=== PATIENT | female | born 1950 | race Caucasian/White ===

== ENCOUNTER 2017-09-18 13:21 | Emergency (ER) | payer OTHER, BC ==
[2017-09-18] MEDS ORDERED: ONDANSETRON 4 MG/2 ML VIAL ONE (14:19)
[2017-09-18] MEDS ORDERED: NA CHLORIDE 0.9% 1,000 ML ONE (14:19)
[2017-09-18 14:40] LABS: Absolute Lymphocytes (CBC) 0.6 K/uL (0.7-4.9); Absolute Monocytes 0.6 K/uL (0.1-1.3); Absolute Neutrophil 6.6 K/uL (1.8-8.0); Basophils % 0.4 % (0-1.3); Eosinophils % 0.1 % (0-4.4); Hematocrit 45.3 % (36.0-45.0); Lymphocytes % 7.6 % (15.3-44.8); MCH 29.4 pg (27.0-35.0); MCV 91.1 fL (80-100); MPV 9.4 fL (7.6-11.3); Monocytes % 7.1 % (3.3-12.3); RBC Red Blood Cell Count 4.97 M/uL (3.86-4.86)
[2017-09-18 15:02] LABS: Albumin 3.9 g/dL (3.2-5.5); Bilirubin Direct 0.1 mg/dL (0-0.2); Bilirubin Total 0.5 mg/dL (0.3-1.2); Protein, Total 8.2 g/dL (6.0-8.3)
[2017-09-18 15:36] LABS: Urine Blood NEGATIVE (NEG); Urine Glucose NEGATIVE (NEG); Urine Protein 2+ (NEG)
--- NOTE | 2017-09-18 15:51 | RAD REPORT ---
EXAM DESCRIPTION: CT - Abdomen Pelvis W Contrast - 09/18/2017 3:35 pm CLINICAL HISTORY: Abdominal pain vomiting and diarrhea x2 days. COMPARISON: none. TECHNIQUE: Computed axial tomography of the abdomen pelvis was obtained. 100 cc Isovue-300 was admin istered intravenously. Oral contrast was not requested which limits evaluation of bowel. All CT scans are performed using dose optimization technique as appropriate and may include automated exposure control or mA/KV adjustment according to patient size. FINDINGS: The liver, spleen, pancreas, adrenal and kidneys appear unremarkable. A 4 centimeter diverticulum stems from the duodenum. The gallbladder has been removed. A small hiatal hernia is seen There is no evidence of diverticulitis. Fluid within nondilated bowel is seen IMPRESSION: Fluid within nondilated bowel may indicate an enteritis
[2017-09-18] MEDS ORDERED: POTASSIUM 25 MEQ EFFERV TAB ONE (16:21)
--- NOTE | 2017-09-18 16:27 | ER ---
Nurse's Notes [facility] Name: Jaycee Dang Age: 66 yrs Sex: Female : 1950 Arrival Date: 09/18/2017 Time: 13:24 Bed 27 Private MD: Diagnosis: Diarrhea, unspecified;Nausea and vomiting Presentation: 09/18 13:29 Presenting complaint: Patient states: N/V/D since . Pt states "I saw Dr. Pino aa5 and he gave me 2 pills but I can't keep it down". Transition of care: patient was not received from another setting of care. Onset of symptoms was September 2017. Care prior to arrival: None. 13:29 Method Of Arrival: Ambulatory aa5 13:29 Acuity: NICOL 3 aa5 16:41 Initial Sepsis Screen: Does the patient meet any 2 criteria? No. Patient's initial tl3 sepsis screen is negative. Does the patient have a suspected source of infection?. Triage Assessment: 16:41 GI: Reports diarrhea, vomiting. tl3 Historical: - Allergies: 13:30 No Known Allergies; aa5 - PMHx: 13:30 Hypertension; Mitral Valve Prolapse; aa5 - PSHx: 13:30 Hysterectomy; Cholecystectomy; aa5 - Immunization history:: Pneumococcal vaccine is up to date. - Social history:: Smoking status: Patient/guardian denies using tobacco. Screenin:37 Abuse screen: Denies threats or abuse. Nutritional screening: No deficits noted. tl3 Tuberculosis screening: No symptoms or risk factors identified. Fall Risk None identified. Assessment: 13:45 General: Appears uncomfortable, well groomed, well developed, well nourished, Behavior tl3 is calm, cooperative, appropriate for age. Pain: Complains of pain in abdomen Also complains of nausea, diarrhea. Neuro: Level of Consciousness is awake, alert, obeys commands, Oriented to person, place, time, situation, Appropriate for age. Cardiovascular: Heart tones S1 S2 present. Respiratory: Airway is patent Trachea midline Breath sounds are clear bilaterally. GI: Abdomen is round Bowel sounds present X 4 quads. hyperactive in right upper quadrant, left upper quadrant, right lower quadrant and left lower quadrant. : No signs and/or symptoms were reported regarding the genitourinary system. EENT: No signs and/or symptoms were reported regarding the EENT system. 15:43 Reassessment: Patient appears in no apparent distress at this time. No changes from tl3 previously documented assessment. Patient and/or family updated on plan of care and expected duration. Pain level reassessed. Patient is alert, oriented x 3, equal unlabored respirations, skin warm/dry/pink. pt states that she feels better. 16:33 Reassessment: Patient appears in no apparent distress at this time. Patient and/or tl3 family updated on plan of care and expected duration. Pain level reassessed. Patient is alert, oriented x 3, equal unlabored respirations, skin warm/dry/pink. Vital Signs: 13:31 BP 125 / 89; Pulse 128; Resp 18 S; Temp 98.2(TE); Pulse Ox 98% on R/A; Weight 88.45 kg aa5 (R); Height 5 ft. 6 in. (167.64 cm) (R); Pain 3/10; 15:43 BP 140 / 74; Pulse 96; Resp 16; Pulse Ox 100% on R/A; tl3 16:33 BP 132 / 89; Pulse 93; Resp 18; Pulse Ox 98% on R/A; tl3 13:31 Body Mass Index 31.47 (88.45 kg, 167.64 cm) aa5 ED Course: 13:24 Patient arrived in ED. sb2 13:29 Triage completed. aa5 13:29 Arm band placed on. aa5 13:32 Jeff Castelan NP is PHCP. pm1 13:32 Daquan Mancera MD is Attending Physician. pm1 13:46 Radiology exam delayed due to lab results not completed at this time. (BUN/Creatinine). vr 14:16 Mya Shay, RN is Primary Nurse. tl3 14:37 Patient has correct armband on for positive identification. Bed in low position. Call tl3 light in reach. Side rails up X 1. 14:37 No provider procedures requiring assistance completed. Initial lab(s) drawn, by me, tl3 sent to lab. Inserted saline lock: 22 gauge in right forearm, using aseptic technique. Blood collected. 15:[address] via wheelchair. cw1 15:34 CT completed. Patient tolerated procedure well. Patient moved back from CT. vr 15:35 CT Abd/Pelvis - W/Contrast: IV contrast only In Process Unspecified. EDMS 15:45 Urine Dipstick--Ancillary (enter results) Sent. tl3 16:33 IV discontinued, intact, bleeding controlled, No redness/swelling at site. Pressure tl3 dressing applied. Administered Medications: 14:32 Drug: NS 0.9% 1000 ml Route: IV; Rate: 1000 ml; Site: right forearm; Delivery: Primary tl3 tubing; 16:32 Follow up: IV Status: Completed infusion; IV Intake: 1000ml tl3 14:32 Drug: Zofran 4 mg Route: IVP; Infused Over: 3 mins; Site: right forearm; tl3 15:45 Follow up: Response: No adverse reaction; Nausea is decreased tl3 16:20 Drug: Potassium Effervescent Tablet 50 mEq Route: PO; tl3 16:32 Follow up: Response: No adverse reaction tl3 Intake: 16:32 IV: 1000ml; Total: 1000ml. tl3 Outcome: 16:26 Discharge ordered by MD. pm1 16:33 Discharged to home ambulatory. tl3 16:33 Condition: stable 16:33 Discharge instructions given to patient, family, Instructed on discharge instructions, follow up and referral plans. medication usage, Demonstrated understanding of instructions, follow-up care, medications, Prescriptions given X 1, stressed fluid intake, follow up with PCP, return to ED if needed 16:42 Patient left the ED. tl3 Signatures: Dispatcher [employer] Marybel Tucker, RN RN Gypsy Geronimo Crystal cw1 Jeff Castelan, CLAM SORTER CLAM SORTER pm1 Mary Henao sb2 Mya Shay, RN RN tl3
--- NOTE | 2017-09-18 16:27 | EDPHYS ---
Physician Documentation [facility] Name: Jaycee Dagn Age: 66 yrs Sex: Female : 1950 Arrival Date: 09/18/2017 Time: 13:24 Bed 27 Private MD: ED Physician Daquan Mancera HPI: 09/18 13:46 This 66 yrs old Female presents to ER via Ambulatory with complaints of pm1 Nausea/Vomiting/Diarrhea. 13:46 The patient presents to the emergency department with nausea, vomiting, diarrhea. pm1 Onset: The symptoms/episode began/occurred 2 day(s) ago. Possible causes: sick contacts, Patient went to the [employer] store where the employee told her to be careful being around her due to all employees, including herself, having vomiting and diarrhea . The symptoms are aggravated by food , The symptoms are alleviated by nothing. Associated signs and symptoms: Pertinent positives: diarrhea, nausea, vomiting, Pertinent negatives: abdominal pain, constipation, dysuria, fever. Called Dr. Pino this AM and was prescribed Phenergan and Lomotil. Patient was not able to keep the medications down. Historical: - Allergies: 13:30 No Known Allergies; aa5 - PMHx: 13:30 Hypertension; Mitral Valve Prolapse; aa5 - PSHx: 13:30 Hysterectomy; Cholecystectomy; aa5 - Immunization history:: Pneumococcal vaccine is up to date. - Social history:: Smoking status: Patient/guardian denies using tobacco. ROS: 13:30 Constitutional: Negative for fever, chills, and weight loss, Eyes: Negative for injury, pm1 pain, redness, and discharge, ENT: Negative for injury, pain, and discharge, Neck: Negative for injury, pain, and swelling, Cardiovascular: Negative for chest pain, palpitations, and edema, Respiratory: Negative for shortness of breath, cough, wheezing, and pleuritic chest pain. 13:30 Back: Negative for injury and pain, : Negative for injury, bleeding, discharge, and swelling, MS/Extremity: Negative for injury and deformity, Skin: Negative for injury, rash, and discoloration, Neuro: Negative for headache, weakness, numbness, tingling, and seizure. 13:30 Abdomen/GI: Positive for nausea and vomiting, diarrhea, abdominal cramps. Exam: 13:30 Constitutional: This is a well developed, well nourished patient who is awake, alert, pm1 and in no acute distress. Head/Face: Normocephalic, atraumatic. Eyes: Pupils equal round and reactive to light, extra-ocular motions intact. Lids and lashes normal. Conjunctiva and sclera are non-icteric and not injected. Cornea within normal limits. Periorbital areas with no swelling, redness, or edema. ENT: Nares patent. No nasal discharge, no septal abnormalities noted. Tympanic membranes are normal and external auditory canals are clear. Oropharynx with no redness, swelling, or masses, exudates, or evidence of obstruction, uvula midline. Mucous membranes moist. Neck: Trachea midline, no thyromegaly or masses palpated, and no cervical lymphadenopathy. Supple, full range of motion without nuchal rigidity, or vertebral point tenderness. No Meningismus. Chest/axilla: Normal chest wall appearance and motion. Nontender with no deformity. No lesions are appreciated. Cardiovascular: Regular rate and rhythm with a normal S1 and S2. No gallops, murmurs, or rubs. No pulse deficits. Respiratory: Lungs have equal breath sounds bilaterally, clear to auscultation and percussion. No rales, rhonchi or wheezes noted. No increased work of breathing, no retractions or nasal flaring. Abdomen/GI: Soft, non-tender, with normal bowel sounds. No distension or tympany. No guarding or rebound. No evidence of tenderness throughout. Back: No spinal tenderness. No costovertebral tenderness. Full range of motion. Skin: Warm, dry with normal turgor. Normal color with no rashes, no lesions, and no evidence of cellulitis. MS/ Extremity: Pulses equal, no cyanosis. Neurovascular intact. Full, normal range of motion. 13:30 Neuro: Orientation: is normal, Motor: moves all fours, Sensation: is normal, no obvious gross deficits. Vital Signs: 13:31 BP 125 / 89; Pulse 128; Resp 18 S; Temp 98.2(TE); Pulse Ox 98% on R/A; Weight 88.45 kg aa5 (R); Height 5 ft. 6 in. (167.64 cm) (R); Pain 3/10; 15:43 BP 140 / 74; Pulse 96; Resp 16; Pulse Ox 100% on R/A; tl3 16:33 BP 132 / 89; Pulse 93; Resp 18; Pulse Ox 98% on R/A; tl3 13:31 Body Mass Index 31.47 (88.45 kg, 167.64 cm) aa5 MDM: 13:40 Patient medically screened. pm1 14:18 Data reviewed: vital signs. Data interpreted: Pulse oximetry: on room air is 98 %. pm1 Interpretation: normal. 16:25 Counseling: I had a detailed discussion with the patient and/or guardian regarding: the pm1 historical points, exam findings, and any diagnostic results supporting the discharge/admit diagnosis, lab results, radiology results, the need for outpatient follow up, to return to the emergency department if symptoms worsen or persist or if there are any questions or concerns that arise at home. 09/18 13:40 Order name: Basic Metabolic Panel; Complete Time: 15:46 pm1 09/18 13:40 Order name: CBC with Diff; Complete Time: 14:46 pm1 09/18 13:40 Order name: Creatinine for Radiology; Complete Time: 15:46 pm1 09/18 13:40 Order name: Hepatic Function; Complete Time: 15:46 pm1 09/18 13:40 Order name: Lipase; Complete Time: 15:46 pm1 09/18 15:33 Order name: Urine Dipstick--Ancillary (enter results) eb 09/18 13:40 Order name: CT Abd/Pelvis - W/Contrast: IV contrast only; Complete Time: 15:58 pm1 09/18 15:33 Order name: Urine Dipstick-Ancillary; Complete Time: 15:46 EDMS 09/18 15:47 Order name: Stool Culture pm1 09/18 15:47 Order name: Fecal Leukocyte Stain pm1 09/18 13:40 Order name: IV Saline Lock; Complete Time: 14:33 pm1 09/18 13:40 Order name: Labs collected and sent; Complete Time: 14:33 pm1 09/18 13:40 Order name: Urine Dipstick-Ancillary (obtain specimen); Complete Time: 15:45 pm1 Administered Medications: 14:32 Drug: NS 0.9% 1000 ml Route: IV; Rate: 1000 ml; Site: right forearm; Delivery: Primary tl3 tubing; 16:32 Follow up: IV Status: Completed infusion; IV Intake: 1000ml tl3 14:32 Drug: Zofran 4 mg Route: IVP; Infused Over: 3 mins; Site: right forearm; tl3 15:45 Follow up: Response: No adverse reaction; Nausea is decreased tl3 16:20 Drug: Potassium Effervescent Tablet 50 mEq Route: PO; tl3 16:32 Follow up: Response: No adverse reaction tl3 Disposition: 18:12 Co-signature as Attending Physician, Daquan Mancera MD. rn Disposition: 09/18/17 16:26 Discharged to Home. Impression: Diarrhea, unspecified, Nausea and vomiting. - Condition is Stable. - Discharge Instructions: Food Choices to Help Relieve Diarrhea, Adult, Diarrhea, Nausea and Vomiting, Viral Gastroenteritis. - Prescriptions for Zofran 4 mg Oral Tablet - take 1 tablet by ORAL route every 8 hours As needed; 20 tablet. - Medication Reconciliation Form, Thank You Letter form. - Follow up: Emergency Department; When: As needed; Reason: Worsening of condition. Follow up: Private Physician; When: 2 - 3 days; Reason: Recheck today's complaints, Continuance of care, Re-evaluation by your physician. - Problem is new. - Symptoms have improved. Signatures: Dispatcher [employer] EDMS Daquan Mancera MD MD rn Calderon, Audri RN RN aa5 Jeff Castelan, YULIYA PSYCHOLOGICAL ANTHROPOLOGIST pm1 Mya Shay RN RN tl3 Corrections: (The following items were deleted from the chart) 16:42 16:26 09/18/2017 16:26 Discharged to Home. Impression: Diarrhea, unspecified; Nausea tl3 and vomiting. Condition is Stable. Forms are Medication Reconciliation Form, Thank You Letter, Antibiotic Education, Prescription Opioid Use. Follow up: Emergency Department; When: As needed; Reason: Worsening of condition. Follow up: Private Physician; When: 2 - 3 days; Reason: Recheck today's complaints, Continuance of care, Re-evaluation by your physician. Problem is new. Symptoms have improved. pm1
[2017-09-18 16:46] VITALS: TEMP 98.2
[2017-09-18 16:48] VITALS: BP 132/89; O2SAT 98
== END 2017-09-18 16:42 | disposition home or self-care (01) ==
LOC: ER 13:21
DX: R19.7 Diarrhea, unspecified (principal); I10 Essential (primary) hypertension; I34.1 Nonrheumatic mitral (valve) prolapse
CPT/HCPCS: 36415; 74177; 80048; 80076; 81003; 83690; 85025; 87045; 87046; 89055; 96361; 96374; 99284; J2405; J7030; Q9967

== ENCOUNTER 2017-09-21 12:23 | Inpatient (IN) | payer OTHER, BC ==
[2017-09-21 14:22] LABS: Absolute Neutrophil 5.3 K/uL (1.8-8.0); Basophils % 0.4 % (0-1.3); Hematocrit 46.2 % (36.0-45.0); Lymphocytes % 13.6 % (15.3-44.8); MCH 29.3 pg (27.0-35.0); MCV 89.8 fL (80-100); MPV 9.1 fL (7.6-11.3); Monocytes % 13.6 % (3.3-12.3); RBC Red Blood Cell Count 5.15 M/uL (3.86-4.86)
[2017-09-21] MEDS ORDERED: NA CHLORIDE 0.9% 1,000 ML ONE (14:24)
[2017-09-21 14:38] LABS: Potassium 2.5 mEq/L (3.6-5.0)
[2017-09-21 14:39] LABS: Bilirubin Direct 0.1 mg/dL (0-0.2); Bilirubin Total 1.1 mg/dL (0.3-1.2); Protein, Total 8.2 g/dL (6.0-8.3)
[2017-09-21] MEDS ORDERED: METRONIDAZOLE 500mg IVPB 500 MG/100 ML BAG IV ONE (14:48)
--- NOTE | 2017-09-21 15:06 | ER ---
Nurse's Notes [facility] Name: Jaycee Dang Age: 66 yrs Sex: Female : 1950 Arrival Date: 09/21/2017 Time: 12:26 Bed 27 Private MD: Jay Pino T Diagnosis: Vomiting;Hypokalemia;Acute kidney failure;Noninfective gastroenteritis and colitis, unspecified-cecum and ascending colitit Presentation: 09/21 12:59 Presenting complaint: Patient states: was here Wednesday for diarrhea and vomiting; hj diarrhea didn't go away; denies bloody stool; denies abd pain; reports nausea;. Transition of care: patient was not received from another setting of care. Onset of symptoms was September 21, 2017. Initial Sepsis Screen: Does the patient meet any 2 criteria? No. Patient's initial sepsis screen is negative. Does the patient have a suspected source of infection? Yes:. Care prior to arrival: None. 12:59 Method Of Arrival: Ambulatory 12:59 Acuity: NICOL 3 hj Triage Assessment: 13:04 General: Appears in no apparent distress. uncomfortable, Behavior is calm, cooperative, hj appropriate for age. Pain: Denies pain. GI: Reports diarrhea. Historical: - Allergies: 13:04 No Known Drug Allergies; hj - Home Meds: 13:04 aspirin 81 mg Oral TbEC 1 tab once daily [Active]; Topamax 100 mg Oral tab 1 tab 2 hj times per day [Active]; pravastatin 80 mg oral tab 1 tab once daily [Active]; omeprazole 40 mg Oral cpDR 1 cap once daily [Active]; Synthroid 125 mcg Oral tab 1 tab once daily [Active]; Premarin 0.3 mg Oral tab 1 tab once daily [Active]; niacin 500 mg Oral cpER 1 caps once daily [Active]; escitalopram oxalate 10 mg oral tab 1 tab once daily [Active]; - PMHx: 13:04 Hypertension; mitral valve prolapse; Hypothyroidism; hj - PSHx: 13:04 Hysterectomy; Cholecystectomy; hj - Immunization history:: Adult Immunizations up to date. - Social history:: Smoking status: Patient/guardian denies using tobacco, never smoked. Screenin:15 Abuse screen: Denies threats or abuse. Nutritional screening: No deficits noted. tl3 Tuberculosis screening: No symptoms or risk factors identified. Fall Risk None identified. Assessment: 14:15 General: Appears in no apparent distress. comfortable, well groomed, well developed, tl3 well nourished, Behavior is calm, cooperative, appropriate for age. Pain: Complains of pain in left lower quadrant and right lower quadrant. Neuro: Level of Consciousness is awake, alert, obeys commands, Oriented to person, place, time, situation, Appropriate for age. Cardiovascular: Heart tones S1 S2 present. Cardiovascular: Patient's skin is warm and dry. Respiratory: Airway is patent Trachea midline Respiratory effort is even, unlabored, Respiratory pattern is regular, symmetrical. GI: Reports diarrhea. : No signs and/or symptoms were reported regarding the genitourinary system. EENT: No signs and/or symptoms were reported regarding the EENT system. Derm: No signs and/or symptoms reported regarding the dermatologic system. Musculoskeletal: No signs and/or symptoms reported regarding the musculoskeletal system. 15:44 Reassessment: Patient appears in no apparent distress at this time. No changes from tl3 previously documented assessment. Patient and/or family updated on plan of care and expected duration. Pain level reassessed. Patient is alert, oriented x 3, equal unlabored respirations, skin warm/dry/pink. rectal washing done with 20ml NS to obtain stool sample, pt tolerated procedure very well, hospitalist at bedside for admit assessment. 16:05 Reassessment: Patient appears in no apparent distress at this time. No changes from tl3 previously documented assessment. Patient and/or family updated on plan of care and expected duration. Pain level reassessed. Patient is alert, oriented x 3, equal unlabored respirations, skin warm/dry/pink. pt resting well. Vital Signs: 13:04 BP 116 / 78; Pulse 115; Resp 18; Temp 97.8(TE); Pulse Ox 97% on R/A; Weight 84.37 kg; Height 5 ft. 6 in. (167.64 cm); Pain 0/10; 14:15 BP 127 / 79; Pulse 113; Resp 18; Pulse Ox 95% ; tl3 15:44 BP 118 / 84; Pulse 113; Resp 18; Pulse Ox 100% ; tl3 16:05 BP 159 / 109; Pulse 81; Resp 18; Pulse Ox 99% ; tl3 13:04 Body Mass Index 30.02 (84.37 kg, 167.64 cm) ED Course: 12:26 Patient arrived in ED. mr 12:26 Jay Pino MD is Private Physician. mr 13:01 Triage completed. hj 13:04 Arm band placed on left wrist. hj 13:28 Bubba Byers MD is Attending Physician. rach 14:15 Mya Shay, BANDAR is Primary Nurse. tl3 14:15 No apparent distress. Awaiting lab results. tl3 14:15 Patient has correct armband on for positive identification. Bed in low position. Call tl3 light in reach. Side rails up X 1. Adult w/ patient. Pulse ox on. NIBP on. Door closed. Lights dimmed. Warm blanket given. 14:15 No provider procedures requiring assistance completed. Initial lab(s) drawn, by pr, tl3 sent to lab. Inserted saline lock: 22 gauge in left antecubital area, using aseptic technique. Blood collected. 14:[address] via wheelchair. tl3 15:00 CT Abd/Pelvis - Without Cont: no oral no iv In Process Unspecified. EDMS 15:04 Lefty Perez DO is Hospitalizing Provider. rach 16:02 Urine Dipstick--Ancillary (enter results) Sent. tl3 16:45 Patient admitted, IV remains in place. tl3 Administered Medications: 14:27 Drug: NS 0.9% 500 ml Route: IV; Rate: bolus; Site: left antecubital; Delivery: Primary tl3 tubing; 15:46 Follow up: IV Status: Completed infusion; IV Intake: 500ml tl3 15:04 Not Given (Duplicate Order): NS 0.9% 1000 ml IV at 125 ml/hr continuous rach 15:46 Drug: Flagyl 500 mg Volume: 100 ml; Route: IVPB; Rate: 200 ml/hr; Infused Over: 30 tl3 mins; Site: left antecubital; Delivery: Primary tubing; 15:55 CANCELLED (Duplicate Order): Potassium Effervescent Tablet 50 mEq PO once; dissolve in rach 4 ounces of water or juice 15:55 CANCELLED (Duplicate Order): Potassium Effervescent Tablet 50 mEq PO once; dissolve in rach 4 ounces of water or juice, repeat second dose x1 16:00 Drug: NS 0.9% with KCl 20 mEq/L 1000 ml Route: IV; Rate: 125 ml/hr; Site: left tl3 antecubital; Delivery: Primary tubing; 16:47 Follow up: IV Status: Infusion continued upon admission tl3 16:03 Drug: Potassium Chloride 40 mEq Route: PO; tl3 16:46 Follow up: Response: No adverse reaction tl3 16:03 Drug: Potassium Chloride 20 mEq Route: IV; Rate: per protocol; Site: left antecubital; tl3 Delivery: Primary tubing; 16:46 Follow up: IV Status: Infusion continued upon admission tl3 16:51 Not Given (pt admitted, sent to floor for administration after potassium completes): tl3 Cipro 400 mg 200 ml IVPB once over 60 mins Intake: 15:46 IV: 500ml; Total: 500ml. tl3 Outcome: 15:06 Decision to Hospitalize by Provider. rach 16:45 Admitted to Med/surg accompanied by tech, via wheelchair, with chart, Report called to tl3 Leon PORTILLO 16:45 Condition: stable 16:45 Instructed on the need for admit. 17:13 Patient left the ED. tl3 Signatures: Dispatcher [employer] Bubba Ocasio MD MD cha Rivera, Maria mr Nikolai Griffin, RN RN Mya Duque RN RN tl3
--- NOTE | 2017-09-21 15:07 | EDPHYS ---
Physician Documentation [facility] Name: Jaycee Dang Age: 66 yrs Sex: Female : 1950 Arrival Date: 09/21/2017 Time: 12:26 Bed 27 Private MD: Jay Pino T ED Physician Bubba Byers HPI: 09/21 13:48 This 66 yrs old Female presents to ER via Ambulatory with complaints of rach Diarrhea. 13:48 The patient presents to the emergency department with diarrhea, abdominal pain, of the rach right lower quadrant and left lower quadrant. Onset: The symptoms/episode began/occurred 2 day(s) ago. Possible causes: unknown. The symptoms are aggravated by nothing. The symptoms are alleviated by nothing. Associated signs and symptoms: The patient has no apparent associated signs or symptoms. The patient has not experienced similar symptoms in the past. Historical: - Allergies: 13:04 No Known Drug Allergies; hj - Home Meds: 13:04 aspirin 81 mg Oral TbEC 1 tab once daily [Active]; Topamax 100 mg Oral tab 1 tab 2 hj times per day [Active]; pravastatin 80 mg oral tab 1 tab once daily [Active]; omeprazole 40 mg Oral cpDR 1 cap once daily [Active]; Synthroid 125 mcg Oral tab 1 tab once daily [Active]; Premarin 0.3 mg Oral tab 1 tab once daily [Active]; niacin 500 mg Oral cpER 1 caps once daily [Active]; escitalopram oxalate 10 mg oral tab 1 tab once daily [Active]; - PMHx: 13:04 Hypertension; mitral valve prolapse; Hypothyroidism; hj - PSHx: 13:04 Hysterectomy; Cholecystectomy; hj - Immunization history:: Adult Immunizations up to date. - Social history:: Smoking status: Patient/guardian denies using tobacco, never smoked. ROS: 13:49 Constitutional: Negative for fever, chills, and weight loss, Eyes: Negative for injury, rach pain, redness, and discharge, ENT: Negative for injury, pain, and discharge, Neck: Negative for injury, pain, and swelling, Cardiovascular: Negative for chest pain, palpitations, and edema, Respiratory: Negative for shortness of breath, cough, wheezing, and pleuritic chest pain, Back: Negative for injury and pain, : Negative for injury, bleeding, discharge, and swelling, MS/Extremity: Negative for injury and deformity, Skin: Negative for injury, rash, and discoloration, Neuro: Negative for headache, weakness, numbness, tingling, and seizure, Psych: Negative for depression, anxiety, suicide ideation, homicidal ideation, and hallucinations, Allergy/Immunology: Negative for hives, rash, and allergies, Endocrine: Negative for neck swelling, polydipsia, polyuria, polyphagia, and marked weight changes, Hematologic/Lymphatic: Negative for swollen nodes, abnormal bleeding, and unusual bruising. 13:49 Abdomen/GI: Positive for abdominal pain, diarrhea. Exam: 13:49 Constitutional: This is a well developed, well nourished patient who is awake, alert, rach and in no acute distress. Head/Face: Normocephalic, atraumatic. Eyes: Pupils equal round and reactive to light, extra-ocular motions intact. Lids and lashes normal. Conjunctiva and sclera are non-icteric and not injected. Cornea within normal limits. Periorbital areas with no swelling, redness, or edema. ENT: Nares patent. No nasal discharge, no septal abnormalities noted. Tympanic membranes are normal and external auditory canals are clear. Oropharynx with no redness, swelling, or masses, exudates, or evidence of obstruction, uvula midline. Mucous membranes moist. Neck: Trachea midline, no thyromegaly or masses palpated, and no cervical lymphadenopathy. Supple, full range of motion without nuchal rigidity, or vertebral point tenderness. No Meningismus. Chest/axilla: Normal chest wall appearance and motion. Nontender with no deformity. No lesions are appreciated. Cardiovascular: Regular rate and rhythm with a normal S1 and S2. No gallops, murmurs, or rubs. Normal PMI, no JVD. No pulse deficits. Respiratory: Lungs have equal breath sounds bilaterally, clear to auscultation and percussion. No rales, rhonchi or wheezes noted. No increased work of breathing, no retractions or nasal flaring. Abdomen/GI: Soft, non-tender, with normal bowel sounds. No distension or tympany. No guarding or rebound. No evidence of tenderness throughout. Back: No spinal tenderness. No costovertebral tenderness. Full range of motion. Skin: Warm, dry with normal turgor. Normal color with no rashes, no lesions, and no evidence of cellulitis. MS/ Extremity: Pulses equal, no cyanosis. Neurovascular intact. Full, normal range of motion. Neuro: Awake and alert, GCS 15, oriented to person, place, time, and situation. Cranial nerves II-XII grossly intact. Motor strength 5/5 in all extremities. Sensory grossly intact. Cerebellar exam normal. Normal gait. Psych: Awake, alert, with orientation to person, place and time. Behavior, mood, and affect are within normal limits. Vital Signs: 13:04 BP 116 / 78; Pulse 115; Resp 18; Temp 97.8(TE); Pulse Ox 97% on R/A; Weight 84.37 kg; hj Height 5 ft. 6 in. (167.64 cm); Pain 0/10; 14:15 BP 127 / 79; Pulse 113; Resp 18; Pulse Ox 95% ; tl3 15:44 BP 118 / 84; Pulse 113; Resp 18; Pulse Ox 100% ; tl3 16:05 BP 159 / 109; Pulse 81; Resp 18; Pulse Ox 99% ; tl3 13:04 Body Mass Index 30.02 (84.37 kg, 167.64 cm) MDM: 13:28 Patient medically screened. [facility] 13:51 Data reviewed: vital signs, nurses notes, lab test result(s). [facility] 09/21 13:48 Order name: Amylase, Serum; Complete Time: 14:57 [facility] 09/21 13:48 Order name: Basic Metabolic Panel; Complete Time: 14:57 [facility] 09/21 13:48 Order name: CBC with Diff; Complete Time: 14:38 [facility] 09/21 13:48 Order name: Creatinine for Radiology; Complete Time: 14:38 [facility] 09/21 13:48 Order name: Hepatic Function; Complete Time: 14:57 [facility] 09/21 13:48 Order name: Lipase; Complete Time: 14:57 [facility] 09/21 13:48 Order name: Urine Microscopic Only [facility] 09/21 13:48 Order name: Stool Culture [facility] 09/21 13:48 Order name: Fecal Leukocyte Stain [facility] 09/21 13:48 Order name: CDIFF [facility] 09/21 14:57 Order name: Phosphorus [facility] 09/21 15:03 Order name: Magnesium [facility] 09/21 15:18 Order name: TSH [facility] 09/21 15:50 Order name: Urine Dipstick--Ancillary (enter results) 09/21 13:48 Order name: IV Saline Lock; Complete Time: 14:21 [facility] 09/21 13:48 Order name: Labs collected and sent; Complete Time: 14:21 [facility] 09/21 14:39 Order name: CT Abd/Pelvis - Without Cont: no oral no iv; Complete Time: 15:56 [facility] 09/21 16:00 Order name: Urine Dipstick-Ancillary EDMS 09/21 17:00 Order name: Thyroid Stimulating Hormone EDMS Administered Medications: 14:27 Drug: NS 0.9% 500 ml Route: IV; Rate: bolus; Site: left antecubital; Delivery: Primary tl3 tubing; 15:46 Follow up: IV Status: Completed infusion; IV Intake: 500ml tl3 15:04 Not Given (Duplicate Order): NS 0.9% 1000 ml IV at 125 ml/hr continuous rach 15:46 Drug: Flagyl 500 mg Volume: 100 ml; Route: IVPB; Rate: 200 ml/hr; Infused Over: 30 tl3 mins; Site: left antecubital; Delivery: Primary tubing; 15:55 CANCELLED (Duplicate Order): Potassium Effervescent Tablet 50 mEq PO once; dissolve in rach 4 ounces of water or juice 15:55 CANCELLED (Duplicate Order): Potassium Effervescent Tablet 50 mEq PO once; dissolve in rach 4 ounces of water or juice, repeat second dose x1 16:00 Drug: NS 0.9% with KCl 20 mEq/L 1000 ml Route: IV; Rate: 125 ml/hr; Site: left tl3 antecubital; Delivery: Primary tubing; 16:47 Follow up: IV Status: Infusion continued upon admission tl3 16:03 Drug: Potassium Chloride 40 mEq Route: PO; tl3 16:46 Follow up: Response: No adverse reaction tl3 16:03 Drug: Potassium Chloride 20 mEq Route: IV; Rate: per protocol; Site: left antecubital; tl3 Delivery: Primary tubing; 16:46 Follow up: IV Status: Infusion continued upon admission tl3 16:51 Not Given (pt admitted, sent to floor for administration after potassium completes): tl3 Cipro 400 mg 200 ml IVPB once over 60 mins Disposition: 09/21/17 15:06 Hospitalization ordered by Lefty Perez for Inpatient Admission. Preliminary diagnosis are Vomiting, Hypokalemia, Acute kidney failure, Noninfective gastroenteritis and colitis, unspecified - cecum and ascending colitit. - Bed requested for Telemetry/MedSurg (Inpatient). - Status is Inpatient Admission. tl3 - Condition is Fair. - Problem is new. - Symptoms have improved. UTI on Admission? No Signatures: Dispatcher [employer] EDMS Bubba Byers MD MD cha Gallardo, Ana Nikolai Griffin RN RN Mya Shay RN RN tl3 Corrections: (The following items were deleted from the chart) 15:55 15:01 Potassium Effervescent Tablet 50 mEq PO once; dissolve in 4 ounces of water or rach juice ordered. [facility] 15:55 15:01 Potassium Effervescent Tablet 50 mEq PO once; dissolve in 4 ounces of water or rach juice, repeat second dose x1 ordered. [facility] 15:57 15:06 Hospitalization Ordered by Lefty Perez DO for Inpatient Admission. Preliminary [facility] diagnosis is Vomiting; Hypokalemia; Acute kidney failure. Bed requested for Intensive Care Unit. Status is Inpatient Admission. Condition is Fair. Problem is new. Symptoms have improved. UTI on Admission? No. rach 16:08 15:57 09/21/2017 15:06 Hospitalization Ordered by Lefty Perez DO for Inpatient rach Admission. Preliminary diagnosis is Vomiting; Hypokalemia; Acute kidney failure; Noninfective gastroenteritis and colitis, unspecified - cecum and ascending colitit. Bed requested for Intensive Care Unit. Status is Inpatient Admission. Condition is Fair. Problem is new. Symptoms have improved. UTI on Admission? No. rach 16:35 16:08 09/21/2017 15:06 Hospitalization Ordered by Lefty Perez DO for Inpatient ag Admission. Preliminary diagnosis is Vomiting; Hypokalemia; Acute kidney failure; Noninfective gastroenteritis and colitis, unspecified - cecum and ascending colitit. Bed requested for Telemetry/MedSurg (Inpatient). Status is Inpatient Admission. Condition is Fair. Problem is new. Symptoms have improved. UTI on Admission? No. rach 17:13 16:35 09/21/2017 15:06 Hospitalization Ordered by Lefty Perez DO for Inpatient tl3 Admission. Preliminary diagnosis is Vomiting; Hypokalemia; Acute kidney failure; Noninfective gastroenteritis and colitis, unspecified - cecum and ascending colitit. Bed requested for Telemetry/MedSurg (Inpatient). Status is Inpatient Admission. Condition is Fair. Problem is new. Symptoms have improved. UTI on Admission? No. ag
--- NOTE | 2017-09-21 15:34 | RAD REPORT ---
EXAM DESCRIPTION: CT - Abdomen Pelvis Wo Contrast - 09/21/2017 3:00 pm CLINICAL HISTORY: Abdominal pain diarrhea and vomiting since Wednesday COMPARISON: September 18, 2017 TECHNIQUE: Computed axial tomography of the abdomen and pelvis was obtained. IV and oral contrast we re not requested. All CT scans are performed using dose optimization technique as appropriate and may include automated exposure control or mA/KV adjustment according to patient size. FINDINGS: The evaluation of solid organs, vessels and bowel is limited secondary to the lack of con trast administration. The gallbladder has been removed. A small hiatal hernia is present. The liver, spleen, pancreas, adrenals and kidneys appear grossly normal. The appendix is normal. There is no evidence of diverticulitis. Mild stranding is present adjacent to the cecum/proximal ascending colon. A 4 centimeter diverticulum stems from the duodenum IMPRESSION: Mild stranding adjacent to the cecum/proximal ascending colon may indicate a mild coliti s
[2017-09-21] MEDS ORDERED: NS KCL 20MEQ 1,000 ML IV ONE (15:52)
[2017-09-21] MEDS ORDERED: POTASSIUM CL SA 10 MEQ TAB PO ONE (15:53)
[2017-09-21] MEDS ORDERED: KCL 20 MEQ/100 mL IVPB 20 MEQ/100 ML BAG IV ONE (15:54)
--- NOTE | 2017-09-21 15:58 | P.HP ---
Certification for Inpatient Patient admitted to: Observation With expected LOS: <2 Midnights Patient will require the following post-hospital care: None Practitioner: I am a practitioner with admitting privileges, knowledge of patient current condition, hospital course, and medical plan of care. Services: Services provided to patient in accordance with Admission requirements found in Title 42 Section 412.3 of the Code of Federal Regulations Patient History Date of Service: 09/21/17 Primary Care Provider: Dr. Pino Reason for admission: Diarrhea History of Present Illness: 66-year-old female presented emergency room with worsening diarrhea. Patient reports that she was taking antibiotic therapy likely Amoxil about 2 weeks ago for sinusitis. During that time she developed diarrhea, nausea and vomiting. She was seen in the ER on Wednesday. Patient was sent home with nausea medication. Her symptoms persisted. Today she reports increasing diarrhea with no improvement. No significant abdominal pain noted. No chest pain, fever, chills, melena or rectal bleeding. She has felt dehydrated. In the ER the patient was evaluated. Patient found to have acute renal injury with a BUN of 28, creatinine 1.21 with a GFR 42. Potassium was 2.5. Amylase elevated at 58. Amylase within normal range. White count 7.4, hemoglobin 15.1. CT scan shows colitis to the cecum and proximal ascending area. Hiatal hernia was also noted. The patient was given potassium replacement. Due to nature of her findings and failed outpatient therapy the patient was admitted for evaluation and treatment. When I saw the patient in the ER, she appeared dehydrated. She did not appear septic. Patient with history of depression, hypothyroidism, hyperlipidemia, and migraines. The patient drinks on occasion. Allergies No Known Drug Allergies Allergy (Unverified 08/15/14 07:33) Unknown propranolol HCl [From Inderal LA] Adverse Reaction (Intermediate, Verified 10/26 08:32) SEE COMMENT No Known Aller Allergy (Uncoded 09/18/17 16:46) Unknown Home medications list reviewed: Yes Home Medications: Aspirin 81 mg PO DAILY 07/22/14 Calcium Carb/Vitamin D3/Vit K1 [Calcium + D Soft Chewable Tab] 333 mg PO DAILY 07/22/14 Escitalopram [Lexapro] 10 mg PO DAILY 07/22/14 Estrogens, Conjugated [Premarin] 0.3 mg PO BEDTIME 07/22/14 Fish Oil/Dha/Epa [Fish Oil 1,200 mg Fish Oil] 1,200 mg PO DAILY 07/22/14 Krill/Om-3/Dha/Epa/Phospho/Ast [Krill Oil 500 mg Softgel] 500 mg PO DAILY Levothyroxine Sodium [Synthroid] 0.125 mg PO BEDTIME 07/22/14 Multivitamin [Daily Multivitamin] 1 tab PO BEDTIME 07/22/14 Niacin [Niacor] 500 mg PO BEDTIME 07/22/14 Omeprazole [Prilosec] 40 mg PO BEDTIME 07/22/14 Pravastatin [Pravachol*] 80 mg PO BEDTIME 07/22/14 Topiramate [Topamax] 100 mg PO BID 07/22/14 Ubidecarenone/Vit E Acetate [Co Q-10 100 mg Softgel] 200 mg PO DAILY 07/22/14 Cyclobenzaprine [Flexeril*] 10 mg PO BID PRN #20 tab 07/23/14 Prednisone [Deltasone] 20 mg PO DAILY #10 tab 07/23/14 Ondansetron [Zofran] 4 mg PO Q6H PRN #20 tab 07/24/14 - Past Medical/Surgical History Diabetic: No -: Mitral valve prolapse -: Hypothyroidism -: Hyperlipidemia -: Depression -: GERD with hiatal hernia -: Migraine headaches -: Cholcystectomy -: Hysterectomy Psychosocial/ Personal History: The patient is . She has 2 children. 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 - Family History Mother -: Kidney disease Notes: due to childhood illness causing kidney to atrophy Father -: Heart disease Brother -: Heart disease, Other (see notes) (Myelodysplasia) - Social History Smoking Status: Never smoker Alcohol use: Yes CD- Drugs: No Caffeine use: Yes Place of Residence: Home Review of Systems General: Weakness, Malaise, As per HPI Eyes: Unremarkable ENT: Unremarkable Respiratory: Unremarkable Cardiovascular: Unremarkable Gastrointestinal: Nausea, Vomiting, Diarrhea, As per HPI Genitourinary: Unremarkable Musculoskeletal: Unremarkable Integumentary: Unremarkable Neurological: Unremarkable Lymphatics: Unremarkable Physical Examination - Physical Exam General: Alert, In no apparent distress, Oriented x3, Cooperative HEENT: Atraumatic, Normocephalic, PERRLA, Other (Dry mucous membranes) Neck: Supple, No Thyromegaly Respiratory: Clear to auscultation bilaterally, Normal air movement Cardiovascular: Normal pulses, Regular rate/rhythm Gastrointestinal: Soft and benign, Non-distended, No tenderness, No masses, No rebound, No guarding, Other (Hyper active bowel sounds) Musculoskeletal: No erythema, No tenderness, No warmth Integumentary: No tenderness/swelling, No erythema, No warmth, No cyanosis Neurological: Normal speech, Normal strength at 5/5 x4 extr, Normal tone, Normal affect Lymphatics: No axilla or inguinal lymphadenopathy - Studies Laboratory Data (last 24 hrs) 09/21/17 14:10: Creatinine 1.21 H 09/21/17 14:10: WBC 7.4, Hgb 15.1 H, Hct 46.2 H, Plt Count 284 D 09/21/17 14:10: Sodium 135, Potassium 2.5 L*, BUN 28 H, Creatinine 1.27 H, Glucose 128 H, Total Bilirubin 1.1, AST 30, ALT 39, Alkaline Phosphatase 75, Amylase 77, Lipase 58 H Assessment and Plan - Problems (Diagnosis) (1) Clostridium difficile colitis Current Visit: Yes Status: Acute Plan: C difficile colitis suspected. CT scan shows colitis to the cecum and ascending area. Patient recently treated for sinusitis with Amoxil. Will start vancomycin orally. Will provide medication for nausea and vomiting. Will continue with IV fluids and potassium replacement. Patient with acute renal injury likely from dehydration. Will monitor closely. If much improved. Possible discharge as early as tomorrow. Will reassess tomorrow. (2) Diarrhea Current Visit: Yes Status: Acute Plan: Continue as above. Qualifiers: Diarrhea type: presumed infectious Qualified Code(s): R19.7 - Diarrhea, unspecified (3) Nausea & vomiting Current Visit: Yes Status: Acute Plan: Will provide medication as needed Qualifiers: Vomiting type: unspecified Vomiting Intractability: unspecified Qualified Code(s): R11.2 - Nausea with vomiting, unspecified (4) Hiatal hernia with GERD Current Visit: Yes Status: Chronic Plan: Will start PPI (5) Hypokalemia Current Visit: Yes Status: Acute Plan: Will continue with potassium replacement protocol. Will monitor and adjust appropriately (6) Acute renal injury Current Visit: Yes Status: Acute Plan: Likely from dehydration. Will monitor closely. Will continue with IV fluid hydration. (7) Hypothyroidism Current Visit: Yes Status: Chronic Plan: Will continue with her medication. Will check tsh. Qualifiers: Hypothyroidism type: unspecified Qualified Code(s): E03.9 - Hypothyroidism , unspecified (8) Hyperlipidemia Current Visit: Yes Status: Chronic Plan: Will continue with her medication. Qualifiers: Hyperlipidemia type: unspecified Qualified Code(s): E78.5 - Hyperlipidemia , unspecified (9) Depression Current Visit: Yes Status: Chronic Plan: Will continue with her medication. Qualifiers: Depression Type: unspecified Qualified Code(s): F32.9 - Major depressive disorder, single episode, unspecified (10) Migraine headache Current Visit: Yes Status: Chronic Plan: Will continue with her medication. Qualifiers: Migraine type: unspecified Status migrainosus presence: without status migrainosus Intractability: not intractable Qualified Code(s): G43.909 - Migraine, unspecified, not intractable, without status migrainosus Discharge Plan: Home Plan to discharge in: 48 Hours - Advance Directives Does patient have a Living Will: No Does patient have a Durable POA for Healthcare: No - Code Status/Comfort Care Code Status Assessed: Yes Time Spent Managing Pts Care (In Minutes): 55
[2017-09-21 16:00] LABS: Urine Blood TRACE (NEG); Urine Glucose NEGATIVE (NEG); Urine Protein 2+ (NEG); Urine Specific Gravity 1.025 (1.005-1.030)
[2017-09-21 16:03] LABS: Urine Bacteria 20-50 /HPF (<20); Urine Culture Reflex Order REFLEXED; Urine Mucus 1+ /HPF (NONE SEEN)
[2017-09-21] MEDS ORDERED: CIPROFLOXACIN 400mg IV 400 MG/200 ML BAG IV ONE (16:50)
[2017-09-21] MEDS ORDERED: ACETAMINOPHEN 500 MG TAB PO PRN (17:14)
[2017-09-21] MEDS ORDERED: ONDANSETRON 4 MG/2 ML VIAL IV PRN (17:14)
[2017-09-21] MEDS: NA CHLORIDE 0.9% 1,000 ML IV SCH ×2 (17:14→23:53)
[2017-09-21 17:32] VITALS: BMI 29.9
[2017-09-21] MEDS: VANCOMYCIN ORAL SOLN 250 MG/5 ML OSYR PO SCH (18:19)
[2017-09-21] MEDS: NIACIN 500 MG SR TAB PO SCH (20:10)
[2017-09-21] MEDS: TOPIRAMATE 100 MG TAB PO SCH (20:11)
[2017-09-21] MEDS: ENOXAPARIN 40 MG/0.4 ML SQ SCH (20:11)
[2017-09-21] MEDS: ATORVASTATIN 10 MG TAB PO SCH (20:11)
[2017-09-22] MEDS: VANCOMYCIN ORAL SOLN 250 MG/5 ML OSYR PO SCH ×5 (00:13→21:18)
[2017-09-22 05:10] LABS: Absolute Lymphocytes (CBC) 1.9 K/uL (0.7-4.9); Absolute Monocytes 1.2 K/uL (0.1-1.3); Absolute Neutrophil 4.5 K/uL (1.8-8.0); Basophils % 0.6 % (0-1.3); Eosinophils % 3.8 % (0-4.4); Lymphocytes % 23.8 % (15.3-44.8); MCH 29.7 pg (27.0-35.0); MCV 89.8 fL (80-100); MPV 9.4 fL (7.6-11.3); Monocytes % 14.7 % (3.3-12.3); RBC Red Blood Cell Count 4.34 M/uL (3.86-4.86)
[2017-09-22 05:27] LABS: Magnesium 1.8 mg/dL (1.8-2.5)
[2017-09-22] MEDS: LEVOTHYROXINE SOD 0.125 MG TAB PO SCH (05:51)
[2017-09-22] MEDS ORDERED: MAGNESIUM SULFATE 1 gm IVPB 1 GM/100 ML BAG IV ONE (05:59)
[2017-09-22] MEDS ORDERED: ESCITALOPRAM 10 MG PO SCH (09:00)
[2017-09-22] MEDS ORDERED: ESTROGENS,CONJUGAG 0.3 MG TAB PO SCH (09:00)
[2017-09-22] MEDS: PANTOPRAZOLE 40MG TABLET PO SCH (09:15)
[2017-09-22] MEDS: ASPIRIN EC 81 MG TAB PO SCH (09:15)
[2017-09-22] MEDS: ENOXAPARIN 40 MG/0.4 ML SQ SCH (09:15)
[2017-09-22] MEDS: ESCITALOPRAM 20 MG TAB PO SCH (09:15)
[2017-09-22] MEDS: TOPIRAMATE 100 MG TAB PO SCH ×2 (09:16→21:17)
[2017-09-22] MEDS: KCL 20 MEQ/100 mL IVPB 20 MEQ/100 ML BAG IV SCH ×2 (09:16→10:25)
[2017-09-22] MEDS: NA CHLORIDE 0.9% 1,000 ML IV SCH ×3 (09:17→21:17)
--- NOTE | 2017-09-22 09:54 | P.PN ---
Subjective Date of Service: 09/22/17 Primary Care Provider: Dr. Pino Chief Complaint: Diarrhea Subjective: Improving (Still with mild diarrhea. Less dehydration noted, no abdominal pain or nausea and vomiting noted) Physical Examination - Vital Signs Temperature: 97.5 F Blood Pressure: 115/70 Pulse: 95 Respirations: 16 Pulse Ox (%): 99 - Physical Exam General: Alert, In no apparent distress, Oriented x3, Cooperative HEENT: Atraumatic Neck: Supple Respiratory: Clear to auscultation bilaterally, Normal air movement Cardiovascular: Normal pulses, Regular rate/rhythm Gastrointestinal: Normal bowel sounds, Soft and benign, Non-distended, No tenderness, No masses, No rebound, No guarding Musculoskeletal: No erythema, No tenderness, No warmth Integumentary: No tenderness/swelling, No erythema, No warmth, No cyanosis Neurological: Normal speech, Normal strength at 5/5 x4 extr, Normal tone, Normal affect - Studies Laboratory Data (last 24 hrs) 09/21/17 14:10: Magnesium 2.1 09/21/17 14:10: Phosphorus 4.5 H 09/21/17 14:10: Creatinine 1.21 H 09/21/17 14:10: WBC 7.4, Hgb 15.1 H, Hct 46.2 H, Plt Count 284 D 09/21/17 14:10: Sodium 135, Potassium 2.5 L*, BUN 28 H, Creatinine 1.27 H, Glucose 128 H, Total Bilirubin 1.1, AST 30, ALT 39, Alkaline Phosphatase 75, Amylase 77, Lipase 58 H Medications List Reviewed: Yes Assessment & Plan - Problems (Diagnosis) (1) Clostridium difficile colitis Onset Date: 09/22/17 Current Visit: Yes Status: Acute Plan: C difficile colitis suspected. C diff culture pending. Patient on vancomycin orally. Will continue monitor closely. Will continue with IV fluids. Patient also with UTI. Rocephin started for this. Anticipate possible discharge tomorrow. Encourage ambulation. CT scan shows colitis to the cecum and ascending area. Patient recently treated for sinusitis with Amoxil. Renal function improved. Will monitor and replace electrolytes. (2) Diarrhea Onset Date: 09/22/17 Current Visit: Yes Status: Acute Plan: Continue as above. Qualifiers: Diarrhea type: presumed infectious Qualified Code(s): R19.7 - Diarrhea, unspecified (3) Nausea & vomiting Onset Date: 09/22/17 Current Visit: Yes Status: Acute Plan: Will provide medication as needed Qualifiers: Vomiting type: unspecified Vomiting Intractability: unspecified Qualified Code(s): R11.2 - Nausea with vomiting, unspecified (4) Hiatal hernia with GERD Onset Date: 09/22/17 Current Visit: Yes Status: Chronic Plan: Will continue with medication (5) Hypokalemia Onset Date: 09/22/17 Current Visit: Yes Status: Acute Plan: Will continue with potassium replacement protocol. Will monitor and adjust appropriately (6) Acute renal injury Onset Date: 09/22/17 Current Visit: Yes Status: Acute Plan: Likely from dehydration. Will continue with IV fluids. This has improved. (7) Hypothyroidism Onset Date: 09/22/17 Current Visit: Yes Status: Chronic Plan: Will continue with her medication. Tsh within normal range. Qualifiers: Hypothyroidism type: unspecified Qualified Code(s): E03.9 - Hypothyroidism , unspecified (8) Hyperlipidemia Onset Date: 09/22/17 Current Visit: Yes Status: Chronic Plan: Will continue with her medication. Qualifiers: Hyperlipidemia type: unspecified Qualified Code(s): E78.5 - Hyperlipidemia , unspecified (9) Depression Onset Date: 09/22/17 Current Visit: Yes Status: Chronic Plan: Will continue with her medication. Qualifiers: Depression Type: unspecified Qualified Code(s): F32.9 - Major depressive disorder, single episode, unspecified (10) Migraine headache Onset Date: 09/22/17 Current Visit: Yes Status: Chronic Plan: Will continue with her medication. Qualifiers: Migraine type: unspecified Status migrainosus presence: without status migrainosus Intractability: not intractable Qualified Code(s): G43.909 - Migraine, unspecified, not intractable, without status migrainosus (11) UTI (urinary tract infection) Current Visit: Yes Status: Acute Plan: Patient appears to have a UTI. Urine culture pending. Will start IV Rocephin. Await urine culture. Qualifiers: Urinary tract infection type: site unspecified Hematuria presence: without hematuria Qualified Code(s): N39.0 - Urinary tract infection, site not specified (12) Dermatitis Current Visit: Yes Status: Acute Plan: Will provide medication for irritation due to diarrhea Discharge Plan: Home Plan to discharge in: 24 Hours Time Spent Managing Pts Care (In Minutes): 55
[2017-09-22] MEDS ORDERED: HYDROCORTISONE 1 % CREAM 30GM TOP PRN (09:55)
[2017-09-22] MEDS ORDERED: CEFTRIAXONE/SWI 1gm 1 GM/10 ML SYR IV SCH (10:00)
[2017-09-22] MEDS: DIPHENOX/ATROP SULF 1 TAB PO PRN ×2 (15:10→23:29)
[2017-09-22] MEDS ORDERED: NIACIN 500 MG PO SCH (21:00)
[2017-09-22] MEDS ORDERED: HOME MED 1 EA UNK (Omeprazole [Prilosec] 40 MG) PO SCH (21:00)
[2017-09-22] MEDS: ATORVASTATIN 10 MG TAB PO SCH (21:17)
[2017-09-22] MEDS: NIACIN 500 MG SR TAB PO SCH (21:17)
[2017-09-22] MEDS: ESTROGENS CONJ 0.3 MG PO SCH (21:17)
[2017-09-22] MEDS: MICONAZOLE 7 APPL/48 GM TUBE VAG SCH (21:20)
[2017-09-22] MEDS ORDERED: POTASSIUM 25 MEQ EFFERV TAB PO ONE (23:10)
[2017-09-23 05:10] LABS: Absolute Lymphocytes (CBC) 2.2 K/uL (0.7-4.9); Absolute Monocytes 0.9 K/uL (0.1-1.3); Absolute Neutrophil 3.6 K/uL (1.8-8.0); Basophils % 0.5 % (0-1.3); Eosinophils % 5.8 % (0-4.4); Lymphocytes % 30.5 % (15.3-44.8); MCH 29.8 pg (27.0-35.0); MCV 90.3 fL (80-100); MPV 9.5 fL (7.6-11.3); RBC Red Blood Cell Count 3.98 M/uL (3.86-4.86)
[2017-09-23 06:06] LABS: Magnesium 1.8 mg/dL (1.8-2.5); Potassium 3.4 mEq/L (3.6-5.0)
[2017-09-23] MEDS ORDERED: MAGNESIUM SULFATE 1 gm IVPB 1 GM/100 ML BAG IV ONE (06:08)
[2017-09-23] MEDS: LEVOTHYROXINE SOD 0.125 MG TAB PO SCH (06:14)
[2017-09-23] MEDS ORDERED: KCL 20 MEQ/100 mL IVPB 20 MEQ/100 ML BAG IV SCH (07:00)
[2017-09-23] MEDS: NA CHLORIDE 0.9% 1,000 ML IV SCH ×2 (08:00→16:58)
[2017-09-23] MEDS: METRONIDAZOLE 500mg IVPB 500 MG/100 ML BAG IV SCH ×2 (08:17→16:58)
[2017-09-23] MEDS: LACTOBACILLUS/ACIDOPHILUS TAB PO SCH ×3 (08:17→21:22)
[2017-09-23] MEDS: ESCITALOPRAM 20 MG TAB PO SCH (08:17)
[2017-09-23] MEDS: ENOXAPARIN 40 MG/0.4 ML SQ SCH (08:17)
[2017-09-23] MEDS: DIPHENOX/ATROP SULF 1 TAB PO PRN (08:17)
[2017-09-23] MEDS: TOPIRAMATE 100 MG TAB PO SCH ×2 (08:18→21:22)
[2017-09-23] MEDS: PANTOPRAZOLE 40MG TABLET PO SCH (08:18)
[2017-09-23] MEDS: ASPIRIN EC 81 MG TAB PO SCH (08:18)
--- NOTE | 2017-09-23 09:22 | P.PN ---
Subjective Date of Service: 09/23/17 Primary Care Provider: Dr. Pino Chief Complaint: Diarrhea Subjective: Improving (Diarrhea improved.) Physical Examination - Vital Signs Temperature: 96.9 F Blood Pressure: 110/59 Pulse: 71 Respirations: 16 Pulse Ox (%): 98 - Physical Exam General: Alert, In no apparent distress, Oriented x3, Cooperative HEENT: Atraumatic, Mucous membr. moist/pink Neck: Supple Respiratory: Clear to auscultation bilaterally, Normal air movement Cardiovascular: Normal pulses, Regular rate/rhythm Gastrointestinal: Normal bowel sounds, Soft and benign, Non-distended, No tenderness, No masses, No rebound, No guarding Musculoskeletal: No contractures, No erythema, No tenderness, No warmth Integumentary: No erythema, No warmth, No cyanosis Neurological: Normal speech, Normal strength at 5/5 x4 extr, Normal tone, Normal affect Lymphatics: No axilla or inguinal lymphadenopathy - Studies Medications List Reviewed: Yes Assessment & Plan - Problems (Diagnosis) (1) Diarrhea Onset Date: 09/22/17 Current Visit: Yes Status: Acute Plan: C diff culture negative. CT scan showed colitis to the cecum and ascending area. Will transition antibiotic therapy to Cipro and Flagyl. Patient also with UTI. Await urine culture. Diarrhea improved. If much improved later today then will consider discharge if urine culture comes back. Will also start lactobacillus. Qualifiers: Diarrhea type: presumed infectious Qualified Code(s): R19.7 - Diarrhea, unspecified (2) Nausea & vomiting Onset Date: 09/22/17 Current Visit: Yes Status: Acute Plan: Will provide medication as needed Qualifiers: Vomiting type: unspecified Vomiting Intractability: unspecified Qualified Code(s): R11.2 - Nausea with vomiting, unspecified (3) Hiatal hernia with GERD Onset Date: 09/22/17 Current Visit: Yes Status: Chronic Plan: Will continue with medication (4) Hypokalemia Onset Date: 09/22/17 Current Visit: Yes Status: Acute Plan: Will continue with potassium replacement protocol. Will monitor and adjust appropriately (5) Acute renal injury Onset Date: 09/22/17 Current Visit: Yes Status: Acute Plan: Likely from dehydration. Will continue with IV fluids. This has improved. (6) Hypothyroidism Onset Date: 09/22/17 Current Visit: Yes Status: Chronic Plan: Will continue with her medication. Tsh within normal range. Qualifiers: Hypothyroidism type: unspecified Qualified Code(s): E03.9 - Hypothyroidism , unspecified (7) Hyperlipidemia Onset Date: 09/22/17 Current Visit: Yes Status: Chronic Plan: Will continue with her medication. Qualifiers: Hyperlipidemia type: unspecified Qualified Code(s): E78.5 - Hyperlipidemia , unspecified (8) Depression Onset Date: 09/22/17 Current Visit: Yes Status: Chronic Plan: Will continue with her medication. Qualifiers: Depression Type: unspecified Qualified Code(s): F32.9 - Major depressive disorder, single episode, unspecified (9) Migraine headache Onset Date: 09/22/17 Current Visit: Yes Status: Chronic Plan: Will continue with her medication. Qualifiers: Migraine type: unspecified Status migrainosus presence: without status migrainosus Intractability: not intractable Qualified Code(s): G43.909 - Migraine, unspecified, not intractable, without status migrainosus (10) UTI (urinary tract infection) Current Visit: Yes Status: Acute Plan: Urine culture pending. Will start Cipro. Qualifiers: Urinary tract infection type: site unspecified Hematuria presence: without hematuria Qualified Code(s): N39.0 - Urinary tract infection, site not specified (11) Dermatitis Current Visit: Yes Status: Acute Plan: Will provide medication for irritation due to diarrhea (12) Colitis Current Visit: Yes Status: Acute Plan: CT scan shows colitis to the cecum and ascending area. C diff culture negative. Will transition to Cipro on Flagyl. Will add lactobacillus. Will continue with above plan of care. Discharge Plan: Home Plan to discharge in: 24 Hours Time Spent Managing Pts Care (In Minutes): 55
[2017-09-23] MEDS: ATORVASTATIN 10 MG TAB PO SCH (21:22)
[2017-09-23] MEDS: ESTROGENS CONJ 0.3 MG PO SCH (21:22)
[2017-09-23] MEDS: NIACIN 500 MG SR TAB PO SCH (21:22)
[2017-09-23] MEDS: CIPROFLOXACIN 400mg IV 400 MG/200 ML BAG IV SCH (21:22)
[2017-09-23] MEDS: MICONAZOLE 7 APPL/48 GM TUBE VAG SCH (21:26)
[2017-09-23 21:47] VITALS: O2SAT 96
[2017-09-24] MEDS: METRONIDAZOLE 500mg IVPB 500 MG/100 ML BAG IV SCH ×2 (01:15→08:41)
[2017-09-24 05:03] LABS: Absolute Lymphocytes (CBC) 1.8 K/uL (0.7-4.9); Absolute Monocytes 0.7 K/uL (0.1-1.3); Absolute Neutrophil 4.3 K/uL (1.8-8.0); Basophils % 0.9 % (0-1.3); Eosinophils % 5.3 % (0-4.4); Hematocrit 33.8 % (36.0-45.0); Lymphocytes % 24.5 % (15.3-44.8); MCH 29.6 pg (27.0-35.0); MCV 89.5 fL (80-100); MPV 9.3 fL (7.6-11.3); Monocytes % 9.8 % (3.3-12.3); RBC Red Blood Cell Count 3.78 M/uL (3.86-4.86)
[2017-09-24 05:24] LABS: Magnesium 1.9 mg/dL (1.8-2.5); Potassium 3.2 mEq/L (3.6-5.0)
[2017-09-24] MEDS: NA CHLORIDE 0.9% 1,000 ML IV SCH (05:49)
[2017-09-24] MEDS: LEVOTHYROXINE SOD 0.125 MG TAB PO SCH (05:50)
[2017-09-24] MEDS ORDERED: KCL 20 MEQ/100 mL IVPB 20 MEQ/100 ML BAG IV SCH (06:00)
--- NOTE | 2017-09-24 08:33 | P.DS ---
Admission Date: 09/21/17 Discharge Date: 09/24/17 Primary Care Provider: Dr. Pino Disposition: ROUTINE DISCHARGE Discharge Condition: GOOD Reason for Admission: Diarrhea Procedures: CT scan: FINDINGS: The evaluation of solid organs, vessels and bowel is limited secondary to the lack of contrast administration. The gallbladder has been removed. A small hiatal hernia is present. The liver, spleen, pancreas, adrenals and kidneys appear grossly normal. The appendix is normal. There is no evidence of diverticulitis. Mild stranding is present adjacent to the cecum/proximal ascending colon. A 4 centimeter diverticulum stems from the duodenum IMPRESSION: Mild stranding adjacent to the cecum/proximal ascending colon may indicate a mild colitis - Problems (1) Diarrhea Onset Date: 09/22/17 Current Visit: Yes Status: Acute Qualifiers: Diarrhea type: presumed infectious Qualified Code(s): R19.7 - Diarrhea, unspecified (2) Nausea & vomiting Onset Date: 09/22/17 Current Visit: Yes Status: Acute Qualifiers: Vomiting type: unspecified Vomiting Intractability: unspecified Qualified Code(s): R11.2 - Nausea with vomiting, unspecified (3) Hiatal hernia with GERD Onset Date: 09/22/17 Current Visit: Yes Status: Chronic (4) Hypokalemia Onset Date: 09/22/17 Current Visit: Yes Status: Acute (5) Acute renal injury Onset Date: 09/22/17 Current Visit: Yes Status: Acute (6) Hypothyroidism Onset Date: 09/22/17 Current Visit: Yes Status: Chronic Qualifiers: Hypothyroidism type: unspecified Qualified Code(s): E03.9 - Hypothyroidism , unspecified (7) Hyperlipidemia Onset Date: 09/22/17 Current Visit: Yes Status: Chronic Qualifiers: Hyperlipidemia type: unspecified Qualified Code(s): E78.5 - Hyperlipidemia , unspecified (8) Depression Onset Date: 09/22/17 Current Visit: Yes Status: Chronic Qualifiers: Depression Type: unspecified Qualified Code(s): F32.9 - Major depressive disorder, single episode, unspecified (9) Migraine headache Onset Date: 09/22/17 Current Visit: Yes Status: Chronic Qualifiers: Migraine type: unspecified Status migrainosus presence: without status migrainosus Intractability: not intractable Qualified Code(s): G43.909 - Migraine, unspecified, not intractable, without status migrainosus (10) UTI (urinary tract infection) Current Visit: Yes Status: Acute Qualifiers: Urinary tract infection type: site unspecified Hematuria presence: without hematuria Qualified Code(s): N39.0 - Urinary tract infection, site not specified (11) Dermatitis Current Visit: Yes Status: Acute (12) Colitis Current Visit: Yes Status: Acute (13) Salmonella Current Visit: Yes Status: Acute Brief History of Present Illness: 66-year-old female presented emergency room with worsening diarrhea. Patient reports that she was taking antibiotic therapy likely Amoxil about 2 weeks ago for sinusitis. During that time she developed diarrhea, nausea and vomiting. She was seen in the ER on Wednesday. Patient was sent home with nausea medication. Her symptoms persisted. Today she reports increasing diarrhea with no improvement. No significant abdominal pain noted. No chest pain, fever, chills, melena or rectal bleeding. She has felt dehydrated. In the ER the patient was evaluated. Patient found to have acute renal injury with a BUN of 28, creatinine 1.21 with a GFR 42. Potassium was 2.5. Amylase elevated at 58. Amylase within normal range. White count 7.4, hemoglobin 15.1. CT scan shows colitis to the cecum and proximal ascending area. Hiatal hernia was also noted. The patient was given potassium replacement. Due to nature of her findings and failed outpatient therapy the patient was admitted for evaluation and treatment. When I saw the patient in the ER, she appeared dehydrated. She did not appear septic. Patient with history of depression, hypothyroidism, hyperlipidemia, and migraines. The patient drinks on occasion. Hospital Course: Patient presented with nausea, vomiting and diarrhea. CT scan showed colitis to the cecum and ascending colon. Patient also had electrolyte abnormalities with acute renal injury. The patient was started on IV fluids and treatment. C diff colitis was suspected as the patient had recent treatment for sinusitis. Stool was negative for C diff colitis. IV antibiotics were adjusted. Patient also found to have a UTI. Urine culture was positive for Salmonella. Patient has improved. Renal function and electrolyte abnormalities resolved. Diarrhea improved. Patient able tolerate her diet. At discharge patient will continue with Cipro 500 mg 1 pill twice daily and Flagyl 500 mg 1 pill 3 times a day for 7 days. Patient may use Imodium 1 pill twice daily as needed for diarrhea. Patient will be provided lactobacillus 1 pill 3 times a day. Recommendation is for the patient to follow up with GI as an outpatient to further assess. Patient will need colonoscopy in 4-6 weeks. Patient found to have a UTI. Urine culture was positive for presumptive Salmonella. Patient will continue with Cipro 500 mg 1 pill twice daily for 7 days. UTI prevention education will be provided. Recommendation is to recheck urine culture after that time to monitor resolution. Patient presented with electrolyte abnormalities and acute renal injury secondary to dehydration. Patient given IV fluids and electrolyte replacement. This resolved. Recommendation is to recheck lab-BMP in 1-2 weeks to monitor resolution. Patient has hypothyroidism. She will continue with medication. Patient has hyperlipidemia. She may continue with her medication. Patient has GERD. CT scan showed small hiatal hernia. She may continue with Prilosec. Patient with history of migraine headaches. She will continue with her medication. Patient will be given vaginal cream for dermatitis and irritation to the anal region.. Vital Signs/Physical Exam: Temp Pulse Resp BP Pulse Ox 97.2 F 70 14 116/63 99 09/24/17 04:00 09/24/17 04:00 09/24/17 04:00 09/24/17 04:00 09/24/17 04:00 General: Alert, In no apparent distress, Oriented x3, Cooperative HEENT: Atraumatic, Mucous membr. moist/pink Neck: Supple, No Thyromegaly Respiratory: Clear to auscultation bilaterally, Normal air movement Cardiovascular: Normal pulses, Regular rate/rhythm Gastrointestinal: Normal bowel sounds, Soft and benign, Non-distended, No tenderness, No masses, No rebound, No guarding Musculoskeletal: No erythema, No tenderness, No warmth Integumentary: No tenderness/swelling, No erythema, No warmth, No cyanosis Neurological: Normal speech, Normal strength at 5/5 x4 extr, Normal tone, Normal affect Lymphatics: No axilla or inguinal lymphadenopathy Laboratory Data at Discharge: WBC 7.3 K/uL (4.3-10.9) 09/24/17 04:43 Hgb 11.2 g/dL (12.0-15.0) L 09/24/17 04:43 Hct 33.8 % (36.0-45.0) L 09/24/17 04:43 Plt Count 201 K/uL (152-406) 09/24/17 04:43 Sodium 139 mEq/L (135-145) 09/24/17 04:43 Potassium 3.2 mEq/L (3.6-5.0) L 09/24/17 04:43 BUN 11 mg/dL (6-20) 09/24/17 04:43 Creatinine 0.81 mg/dL (0.44-1.00) 09/24/17 04:43 Glucose 98 mg/dL (65-120) 09/24/17 04:43 Phosphorus 4.5 mg/dL (2.5-4.3) H 09/21/17 14:10 Magnesium 1.9 mg/dL (1.8-2.5) 09/24/17 04:43 Total Bilirubin 1.1 mg/dL (0.3-1.2) 09/21/17 14:10 AST 30 IU/L (10-42) 09/21/17 14:10 ALT 39 IU/L (10-60) 09/21/17 14:10 Alkaline Phosphatase 75 IU/L (42-121) 09/21/17 14:10 Amylase 77 U/L (28-100) 09/21/17 14:10 Lipase 58 U/L (22-51) H 09/21/17 14:10 Home Medications: Aspirin 81 mg PO DAILY 07/22/14 Escitalopram [Lexapro] 10 mg PO DAILY 07/22/14 Levothyroxine Sodium [Synthroid] 0.125 mg PO DAILY 07/22/14 Niacin [Niacor] 500 mg PO BEDTIME 07/22/14 Omeprazole [Prilosec] 40 mg PO BEDTIME 07/22/14 Pravastatin [Pravachol*] 80 mg PO BEDTIME 07/22/14 Topiramate [Topamax] 100 mg PO BID 07/22/14 Estrogens,Conj [Premarin*] 0.3 mg PO DAILY 09/21/17 Ciprofloxacin HCl [Cipro 500 MG Tablet] 500 mg PO BID #14 tab 09/24/17 Lactobacillus Acidophilus [Acidophilus] 1 each PO TID #90 capsule 09/24/17 Loperamide HCl [Imodium A-D] 2 mg PO BID PRN #10 tablet 09/24/17 Metronidazole [Flagyl] 500 mg PO Q8H #21 tablet 09/24/17 Miconazole [Monistat-7 2% Vaginal Cream*] 1 appl VAG BEDTIME #7 gm 09/24/17 New Medications: Ciprofloxacin HCl [Cipro 500 MG Tablet] 500 mg PO BID #14 tab Lactobacillus Acidophilus [Acidophilus] 1 each PO TID #90 capsule Loperamide HCl [Imodium A-D] 2 mg PO BID PRN #10 tablet PRN Reason: Diarrhea Metronidazole [Flagyl] 500 mg PO Q8H #21 tablet Miconazole [Monistat-7 2% Vaginal Cream*] 1 appl VAG BEDTIME #7 gm Patient Discharge Instructions: 1. Patient will need a follow up with a PCP in 1 week to follow up this hospitalization. 2. Patient presented with nausea, vomiting and diarrhea. Patient found to have colitis to the cecum and ascending colon. Stool was negative for C diff colitis. Patient treated with IV antibiotic therapy and IV fluids. Patient has improved. Urine culture positive for Salmonella. At discharge patient will continue with Cipro 500 mg 1 pill twice daily and Flagyl 500 mg 1 pill 3 times a day for 7 days. Patient may use Imodium 1 pill twice daily as needed for diarrhea. Patient will be provided lactobacillus 1 pill 3 times a day. Recommendation is for the patient to follow up with GI as an outpatient to further assess. Patient will need colonoscopy in 4-6 weeks. 3. Patient found to have a UTI. Urine culture positive for presumptive Salmonella. Patient will continue with Cipro 500 mg 1 pill twice daily for 7 days. UTI prevention education will be provided. Recommendation is to recheck urine culture after that time to monitor resolution. 4. Patient presented with electrolyte abnormalities and acute renal injury secondary to dehydration. Patient given IV fluids and electrolyte replacement. This resolved. Recommendation is to recheck lab-BMP in 1-2 weeks to monitor resolution. 5. Patient has hypothyroidism. She will continue with medication. 6. Patient has hyperlipidemia. She may continue with her medication. 7. Patient has GERD with hiatal hernia. She may continue with Prilosec. 8. Patient will be given vaginal cream for dermatitis. Diet: AHA Activity: Ad wilmar Time spent managing pt's care (in minutes): 55
[2017-09-24] MEDS: PANTOPRAZOLE 40MG TABLET PO SCH (08:41)
[2017-09-24] MEDS: ASPIRIN EC 81 MG TAB PO SCH (08:41)
[2017-09-24] MEDS: LACTOBACILLUS/ACIDOPHILUS TAB PO SCH (08:41)
[2017-09-24] MEDS: ESCITALOPRAM 20 MG TAB PO SCH (08:41)
[2017-09-24] MEDS: TOPIRAMATE 100 MG TAB PO SCH (08:41)
[2017-09-24] MEDS: CIPROFLOXACIN 400mg IV 400 MG/200 ML BAG IV SCH (08:42)
[2017-09-24] MEDS: ENOXAPARIN 40 MG/0.4 ML SQ SCH (08:42)
[2017-09-24 13:50] VITALS: BP 109/58; TEMP 97.5
== END 2017-09-24 13:56 | disposition home or self-care (01) | DRG 392 ==
LOC: ER 12:23 → ERHOLD 15:09 → 2ND 16:46
PROVIDERS: ADMIT Family Medicine; ATTEND Family Medicine
DX: K52.9 Noninfective gastroenteritis and colitis, unspecified (principal); N39.0 Urinary tract infection, site not specified; N17.9 Acute kidney failure, unspecified; B96.89 Other specified bacterial agents as the cause of diseases classified elsewhere; E86.0 Dehydration; E03.9 Hypothyroidism, unspecified; E78.5 Hyperlipidemia, unspecified; K21.9 Gastro-esophageal reflux disease without esophagitis; K44.9 Diaphragmatic hernia without obstruction or gangrene; L30.9 Dermatitis, unspecified; E87.6 Hypokalemia; F32.9 Major depressive disorder, single episode, unspecified; G43.909 Migraine, unspecified, not intractable, without status migrainosus
CPT/HCPCS: 36415; 74176; 74177; 80048; 80076; 81003; 81015; 82150; 83690; 83735; 84100; 84132; 84443; 85025; 87045; 87046; 87077; 87086; 87088; 87186; 87493; 89055; 96361; 96365; 96374; 96375; 99284; 99285; J0696; J0744; J1650; J2405; J3475; J7030; Q9967